=== PATIENT | female | born 1960 | race Native Hawaiian/Other Pacific Islander ===

== ENCOUNTER 2016-08-18 14:41 | Outpatient (CLI) | payer OTHER ==
[~2016-08-18 14:41] MED LIST: AMBIEN5 MG PO; BUDE1AER5 INH; CLONIDINE0.1 MG PO; CRESTOR20 MG PO; GABA300C2 PO; HYDR10TA47 PO; LISI10TA11 PO; PROAIR HFA IN; TRAM50TA PO; TRAZ50TA36 PO
== END 2016-08-18 19:37 | disposition home or self-care (01) ==
LOC: MRI 14:41
DX: M51.34 Other intervertebral disc degeneration, thoracic region (principal); M54.2 Cervicalgia

== ENCOUNTER 2017-03-10 14:56 | Outpatient (CLI) | payer OTHER | END 2017-03-10 19:14 | disposition home or self-care (01) | LOC: US 14:56 | DX: M79.602 Pain in left arm (principal); M79.89 Other specified soft tissue disorders ==

== ENCOUNTER 2017-08-04 11:06 | Outpatient (CLI) | payer OTHER | END 2017-08-04 19:48 | disposition home or self-care (01) | LOC: RESP 11:06 | DX: R07.89 Other chest pain (principal) ==

== ENCOUNTER 2018-01-07 08:14 | Outpatient (CLI) | payer OTHER | END 2018-01-07 19:48 | disposition home or self-care (01) | LOC: MAMMO 08:14 | DX: Z12.31 Encounter for screening mammogram for malignant neoplasm of breast (principal) ==

== ENCOUNTER 2019-02-01 13:05 | Outpatient (CLI) | payer OTHER | END 2019-02-01 23:59 | LOC: MRI 13:05 | DX: M54.2 Cervicalgia (principal); R11.0 Nausea; I34.1 Nonrheumatic mitral (valve) prolapse; R07.89 Other chest pain; R53.83 Other fatigue; M51.34 Other intervertebral disc degeneration, thoracic region; M51.36 Other intervertebral disc degeneration, lumbar region; M25.512 Pain in left shoulder; M25.561 Pain in right knee; M79.661 Pain in right lower leg; Z72.0 Tobacco use ==

== ENCOUNTER 2019-03-19 16:45 | Emergency (ER) | payer OTHER ==
[~2019-03-19] VITALS: Ht 165.1 cm; Wt 38.6 kg
[2019-03-19 17:07] VITALS: BP 148/74; TEMP 97.9
== END 2019-03-19 17:15 | disposition home or self-care (01) ==
LOC: ED 16:45
PROC: 2W2JX4Z Dressing of Right Finger using Bandage (ICD-10-PCS; principal; 2019-03-19)
DX: T23.131A Burn of first degree of multiple right fingers (nail), not including thumb, initial encounter (principal); T31.0 Burns involving less than 10% of body surface; X19.XXXA Contact with other heat and hot substances, initial encounter; Y92.89 Other specified places as the place of occurrence of the external cause
CPT/HCPCS: 99282

== ENCOUNTER 2020-05-25 14:45 | Outpatient (CLI) | payer OTHER | END 2020-05-25 20:09 | disposition home or self-care (01) | LOC: MRI 14:45 | PROVIDERS: ATTEND Nurse Practitioner Family | DX: M25.512 Pain in left shoulder (principal) ==

== ENCOUNTER 2021-10-04 11:00 | Outpatient (CLI) | payer OTHER | END 2021-10-04 20:31 | disposition home or self-care (01) | LOC: RAD 11:00 | PROVIDERS: ATTEND Internal Medicine | DX: J44.9 Chronic obstructive pulmonary disease, unspecified (principal) ==

== ENCOUNTER 2022-02-21 09:56 | Outpatient (CLI) | payer OTHER | END 2022-02-21 19:07 | disposition home or self-care (01) | LOC: MRI 09:56 | PROVIDERS: ATTEND Internal Medicine | DX: M51.36 Other intervertebral disc degeneration, lumbar region (principal); M54.59 Other low back pain; M54.17 Radiculopathy, lumbosacral region ==

== ENCOUNTER 2022-07-08 09:52 | Outpatient (CLI) | payer OTHER | END 2022-07-08 19:33 | disposition home or self-care (01) | LOC: MRI 09:52 | PROVIDERS: ATTEND Internal Medicine | DX: M54.2 Cervicalgia (principal); G89.29 Other chronic pain ==

== ENCOUNTER 2023-01-07 09:03 | Outpatient (CLI) | payer OTHER | END 2023-01-07 21:01 | disposition home or self-care (01) | LOC: CT 09:03 | PROVIDERS: ATTEND Obstetrics & Gynecology | DX: N32.89 Other specified disorders of bladder (principal) | CPT/HCPCS: 82565; 84520; Q9963 ==

== ENCOUNTER 2023-03-30 09:23 | Outpatient (CLI) | payer OTHER | END 2023-03-30 19:14 | disposition home or self-care (01) | LOC: US 09:23 | PROVIDERS: ATTEND Specialist | DX: N28.89 Other specified disorders of kidney and ureter (principal) ==